=== PATIENT | male | born 1940 | race African-American/Black ===

== ENCOUNTER 2017-07-24 04:05 | Emergency (ER) | payer OTHER ==
[~2017-07-24] VITALS: Ht 185.4 cm; Wt 82.6 kg
[~2017-07-24 04:05] MED LIST: HUMULIN N100 UNIT/3 SQ; NOVOLOG100 UNIT/1 SUBQ; PHENERGAN 25 MG25 M1 PO; ZOFRAN ODT4 MG PO
[2017-07-24] MEDS ORDERED: FLEXERIL PO (04:13)
[2017-07-24] MEDS ORDERED: HYDROCODONE-AP1 EAC6 PO (04:13)
[2017-07-24] MEDS ORDERED: PERCOCET PO (04:23)
[2017-07-24] MEDS ORDERED: NAPROXEN375 MG PO (04:23)
[2017-07-24 05:37] VITALS: BP 138/62
== END 2017-07-24 05:39 | disposition home or self-care (01) ==
LOC: ER 04:05
DX: M54.42 Lumbago with sciatica, left side (principal); E11.9 Type 2 diabetes mellitus without complications; Z90.49 Acquired absence of other specified parts of digestive tract; Z79.4 Long term (current) use of insulin